=== PATIENT | male | born 1975 | race Caucasian/White ===

== ENCOUNTER 2017-09-21 05:21 | Day surgery (SDC) | payer OTHER ==
[2017-09-18 10:27] VITALS: BMI 31.0
[~2017-09-21] VITALS: Ht 162.6 cm; Wt 83.6 kg
[2017-09-21] VITALS (16 sets, daily range): BP systolic 90–114; BP diastolic 48–72; PULSE 56–94; RESP 12–24; Ht 162.6 cm; Wt 83.6 kg
[~2017-09-21 05:21] MED LIST: AMOX500C2 PO; IBUP-1542 PO; PRED20TA PO
[2017-09-21] MEDS ORDERED: CEFAZOLIN 2 GM/50 ML (PMX) 50 ML IVPB ONE (05:30)
[2017-09-21] MEDS ORDERED: SOD CHLORIDE 0.9% 1,000 ML IV ONE (05:30)
[2017-09-21] MEDS ORDERED: BUPIVACAINE 0.25% (MPF) 30 ML INJ ONE (06:43)
[2017-09-21] MEDS ORDERED: MIDAZOLAM 1 MG/ML 2 ML INJ ONE (07:32)
[2017-09-21] MEDS ORDERED: PROPOFOL 20 ML ONE ×2 (07:32→07:53)
[2017-09-21] MEDS ORDERED: KETOROLAC 30 MG INJ ONE (07:33)
[2017-09-21] MEDS ORDERED: CEFAZOLIN 1 GM INJ ONE (07:33)
[2017-09-21] MEDS ORDERED: FENTAnyl 50 MCG/ML VIAL ONE (07:33)
[2017-09-21] MEDS ORDERED: METOCLOPRAMIDE 10 MG INJ ONE (07:33)
[2017-09-21] MEDS ORDERED: ONDANSETRON 4 MG INJ ONE (07:52)
[2017-09-21] MEDS ORDERED: SUCCINYLCHOLINE CHLORIDE 100 MG/5 ML SYG IV ONE (07:52)
[2017-09-21] MEDS ORDERED: OXYCODONE/ACETAMINOPHEN (5/325) TAB PO PRN ×2 (08:00)
[2017-09-21] MEDS ORDERED: MEPERIDINE 25 MG INJ IV PRN (08:00)
[2017-09-21] MEDS ORDERED: ONDANSETRON 4 MG INJ IV PRN (08:00)
[2017-09-21] MEDS ORDERED: HYDROmorphONE (0.2 MG/ML) 10ML SYG IV PRN ×3 (08:00)
[2017-09-21] MEDS ORDERED: DIPHENHYDRAMINE 50 MG INJ IV PRN (08:00)
--- NOTE | 2017-09-21 08:15 | OPR ---
Date/Time of Note Date/Time of Note DATE: 09/21/17 TIME: 08:13 Operative Report Procedure Date: Sep 21, 2017 Preoperative Diagnosis right forehead mass Postoperative Diagnosis same Operation/Procedure Performed 1. excision of right forehead mass 3 cm mass 3 cm incision 2. localized adjacent tissue transfer with the use of skin flaps 6 sq cm defect 3. therapeutic injection of subcutaneous localized anesthesia Surgeon see signature line [employer] none Anesthesia Type: general Estimated Blood Loss: 0 - 10 ml's Transfusion none Specimen right forehead mass Grafts/Implants none Complications none Pt Condition Post Procedure: stable Indications This is a 42-year-old male with a recurrent right forehead mass. He requests surgical excision. Risks alternatives benefits and percent were discussed the patient. Patient expresses understanding consents to the operation. Procedure Description Patient is taken to the OR and prepped and draped in the usual sterile fashion. Surgical timeout is performed. IV antibiotics were given. Transverse incision is made with a 15 blade over the right forehead mass. Dissection cautery was carried onto the mass and the mass and circumferentially excised. There is good hemostasis. The wound is irrigated. Due to the large tissue defect localized adjacent tissue transfer with these of skin flaps was performed. Multilayer closure with interrupted 3-0 Vicryl and a running 4-0 Monocryl. Therapeutic subcutaneous local anesthesia was injected throughout the incision site. Dry dressings were applied. Fer PARRA Sep 21, 2017 08:15
[2017-09-21] MEDS ORDERED: IBUPROFEN 800 MG TAB PO ONE (08:30)
== END 2017-09-21 10:19 | disposition home or self-care (01) ==
LOC: SDS 05:21
PROVIDERS: ATTEND Surgery
DX: D17.0 Benign lipomatous neoplasm of skin and subcutaneous tissue of head, face and neck (principal)
CPT/HCPCS: 14040; J0690; J1170; J1885; J2250; J2405; J2765; J3010; Z7512; Z7610

== ENCOUNTER 2018-02-19 20:31 | Emergency (ER) | END 2018-02-20 00:35 | disposition home or self-care (01) ==